=== PATIENT | female | born 1990 | race Two or more races ===

== ENCOUNTER 2025-01-16 19:52 | Emergency (ER) | payer MEDICAID, OTHER ==
[~2025-01-16] VITALS: Ht 157.5 cm; Wt 72.7 kg
--- NOTE | 2025-01-16 20:42 | DVH ---
CHEST RADIOGRAPH Indication: cp Technique: Single frontal view of the chest was obtained COMPARISON: None FINDINGS: Lines and Tubes: None Lungs: Increased interstitial prominence. Pleura: No effusion. No pneumothorax. Cardiomediastinal contours: Unremarkable Bones: Unremarkable IMPRESSION: Mild pulmonary vascular congestion viral pneumonia.
--- NOTE | 2025-01-16 21:01 | ED.PDOC ---
History of Present Illness HPI Comments 34 y/o F with history of insulin-dependent diabetes brought in by family complaining of left-sided chest pain intermittently for the past week, worse and constant today. 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 SUPERVISOR Hx Family History Family History: Unknown Social History Smoker: Non-Smoker Alcohol: Denies ETOH Use Drugs: Denies Drug Use Lives In: Home All Other Systems: Reviewed and Negative (Comprehensive systems review obtained and negative except for what is stated in the HPI.) Physical Exam General Appearance: No Apparent Distress HEENT: Other (Pupils and face Symmetric, moist mucous membranes) Neck: Full Range of Motion, Normal Inspection Respiratory: Chest Non-Tender, Lungs Clear, No Accessory Muscle Use, No Respiratory Distress, Normal Breath Sounds Cardiovascular: No Edema, No JVD, Regular Rate/Rhythm Breast Exam: Deferred Gastrointestinal: Non Tender, Soft Genitalia: Deferred Pelvic: Deferred Rectal: Deferred Extremities: Normal inspection, Normal range of motion, Non-tender, No pedal edema Neurologic: Alert (Oriented x4), Normal Affect, Normal Mood, Other (Ambulatory without difficulty. No gross focal deficit.) Cerebellar Function: NOT DONE Reflexes: NOT DONE Skin: Dry, Normal Color, Warm Lymphatic: NOT DONE Was a procedure done? Was a procedure done?: No EKG EKG : Pulse Rate (adult): 83 Comments Sinus rhythm, rate 83, normal intervals, borderline left axis deviation, possible old inferior infarct, anteroseptal T inversion with other nonspecific T changes. Differential Dx Considerations may include: OH, ACS, PE, URI, PNA, viral syndrome, costochondritis, pericarditis, musculoskeletal pain, anxiety, angina , among others X-Ray, Labs, Meds, VS Vital Signs Date Time Temp Pulse Resp B/P (MAP) Pulse Ox O2 Delivery O2 Flow Rate FiO2 01/17/25 00:59 131/96 01/17/25 00:25 119/85 01/17/25 00:25 87 17 97 Room Air* 0 21 01/17/25 00:22 98.1 80 19 115/69 (84) 100 98.1 01/16/25 21:00 83 01/16/25 20:01 83 01/16/25 19:58 98.2 83 16 126/75 (92) 97 Lab Test 01/17/25 01:29 01/17/25 01:08 01/16/25 21:46 01/16/25 20:07 Range/Units POC Glucose 333 H 70-106 mg/dl Lactic Acid Level 0.8 0.4-2.0 mmol/L Troponin I High Sensitivity < 3 L < 3 L </=34 ng/L White Blood Count 9.8 4.4-10.8 10^3/uL Red Blood Count 4.91 4.0-5.20 10^6/uL Hemoglobin 14.7 12.2-16.2 g/dL Hematocrit 42.6 36.0-46.0 % Mean Corpuscular Volume 86.8 80.0-100.0 fL Mean Corpuscular Hemoglobin 30.0 28.0-32.0 pg Mean Corpuscular Hemoglobin Concent 34.6 32.0-36.0 g/dL Red Cell Distribution Width 13.0 11.8-14.3 % Platelet Count 335 140-450 10^3/uL Mean Platelet Volume 8.9 6.9-10.8 fL Neutrophils (%) (Auto) 63.5 37.0-80.0 % Lymphocytes (%) (Auto) 29.8 10.0-50.0 % Monocytes (%) (Auto) 5.4 0.0-12.0 % Eosinophils (%) (Auto) 1.0 0.0-7.0 % Basophils (%) (Auto) 0.3 0.0-2.0 % Neutrophils # (Auto) 6.2 1.6-8.6 10 ^3/uL Lymphocytes # (Auto) 2.9 0.4-5.4 10 ^3/uL Monocytes # (Auto) 0.5 0-1.3 10 ^3/uL Eosinophils # (Auto) 0.1 0-0.8 10 ^3/uL Basophils # (Auto) 0 0-0.2 10 ^3/uL Nucleated Red Blood Cells 0.2 % Sodium Level 132 L 136-145 mmol/L Potassium Level 3.9 3.5-5.1 mmol/L Chloride Level 99 98-107 mmol/L Carbon Dioxide Level 23 20-31 mmol/L Anion Gap 10 5-15 Blood Urea Nitrogen 13 9-23 mg/dL Creatinine 0.93 0.550-1.02 mg/dL Glomerular Filtration Rate Calc 83 >90 mL/min BUN/Creatinine Ratio 14.0 10.0-20.0 Serum Glucose 407 *H 74-106 mg/dL Calcium Level 10.1 8.7-10.4 mg/dL B-Type Natriuretic Peptide 6.89 0-100 pg/mL Beta HCG, Quantitative 18.9 H 1.5-4.2 mIU/mL Current Medications Medications (Trade) Dose Ordered Sig/Layo Route Start Time Stop Time Status Last Admin Aspirin 162 mg ONCE ONCE PO 01/16/25 20:30 01/16/25 20:31 DC 01/17/25 00:24 Nitroglycerin (Ntrostat Sublingual) 0.4 mg ONCE ONCE SL 01/16/25 20:30 01/16/25 20:31 DC 01/17/25 00:25 Sodium Chloride 1,000 ml @ 1,000 mls/hr Q1H ONCE IV 01/17/25 01:00 01/17/25 01:59 DC 01/17/25 01:34 Ceftriaxone Sodium 50 ml @ 100 mls/hr ONCE ONCE IV 01/17/25 01:00 01/17/25 01:29 DC 01/17/25 01:00 Azithromycin 250 ml @ 125 mls/hr ONCE ONCE IV 01/17/25 01:00 01/17/25 02:59 DC 01/17/25 01:39 Insulin Human Regular (InsuLIN R) 4 units ONCE ONCE IV 01/17/25 01:00 01/17/25 01:01 DC 01/17/25 01:34 [place] [id number] Ph: [phone] DIAGNOSTIC IMAGING Diagnostic Imaging Report : [id number] Signed PATIENT: ADITI MAE ACCT: [id number] UNIT: [id number] : 1990 LOC: ER ROOM / BED: / AGE / SEX: 34 / F ADM STATUS: REG ER SERVICE 18 ORDERING PHYSICIAN: JOSE BERRY MD PROCEDURE(s): CXRP - CHEST PORTABLE REASON: cp ORDER NUMBER(s): [id number], ACCESSION NUMBER(s): [id number] CHEST RADIOGRAPH Indication: cp Technique: Single frontal view of the chest was obtained COMPARISON: None FINDINGS: Lines and Tubes: None Lungs: Increased interstitial prominence. Pleura: No effusion. No pneumothorax. Cardiomediastinal contours: Unremarkable Bones: Unremarkable IMPRESSION: Mild pulmonary vascular congestion viral pneumonia. ATED BY: SKINNY ESPARZA MD DICTATED DATE/TIME: 01/16/252037 SIGNED BY: SKINNY ESPARZA MD SIGNED DATE/TIME: 01/16/252037 CC: X-Ray, Labs, Meds, VS Comment 34-year-old female with a history of diabetes complaining of chest pain Vitals unremarkable Exam unremarkable Rhythm strip independently interpreted by me: Sinus rhythm, rate 83, no ectopy. Chest x-ray IMPRESSION: Mild pulmonary vascular congestion viral pneumonia. CBC unremarkable, metabolic panel remarkable for sodium 132 and glucose 407, hCG slightly elevated at 18.9, BNP and 2 serial troponins negative Patient treated with the following in the ED: Aspirin 325 mg p.o., nitro glycerin 0.4 mg sublingual, 1 L 0.9 normal saline IV bolus, regular insulin 4 units IV, Rocephin 1 g IV, Zithromax 500 mg IV On re-evaluation, patient states pain has improved. Vitals are stable. Plan is to admit the patient for ongoing serial troponins, Cardiology evaluation, glucose control and coverage of possible pneumonia. Time of 1ST Reevaluation: 20:25 Reevaluation 1ST: Unchanged Patient Education/Counseling: Diagnosis, Treatment Family Education/Counseling: No Family Present Additional Information - The following tests were ordered, and results were reviewed by me: EKG, beta- quant, UA, BMP, BNP, CBC, troponin, CXR - I reviewed and agreed with the following test results read by other provider: CXR - I discussed treatments and results with medical personnel Departure 1 Departure Time of Disposition: 00:58 Impression: Primary Impression: Chest pain with high risk for cardiac etiology Additional Impressions: Pneumonia Qualified Codes: J18.9 - Pneumonia, unspecified organism Hyperglycemia Disposition: ADMITTED INPATIENT Condition: Guarded Critical Care Note Critical Care Time?: No Stability Stability form required: No Heart Score Heart Score: Heart Score Response (Comments) Value History Highly Suspicious [address]-Deviation 2 Age <45 0 Risk Factors 1 or 2 risk factors 1 Troponin Normal limit 0 Total 5 I personally scribed for JSOE BERRY MD ([email or web address]) on 01/16/25 at 21:00. Electronically submitted by Henok Henry ([email or web address]). JOSE BERRY MD Jan 16, 2025 21:00
[2025-01-16 21:43] LABS: Basophils # (auto) 0 10 ^3/uL (0-0.2); Basophils % (auto) 0.3 % (0.0-2.0); Eosinophils # (auto) 0.1 10 ^3/uL (0-0.8); Hematocrit 42.6 % (36.0-46.0); Hemoglobin 14.7 g/dL (12.2-16.2); Lymphocytes # (auto) 2.9 10 ^3/uL (0.4-5.4); Lymphocytes % (auto) 29.8 % (10.0-50.0); Mean Corpuscular Hgb Conc. 34.6 g/dL (32.0-36.0); Mean Corpuscular Volume 86.8 fL (80.0-100.0); Monocytes # (auto) 0.5 10 ^3/uL (0-1.3); Monocytes % (auto) 5.4 % (0.0-12.0); Neutrophils # (auto) 6.2 10 ^3/uL (1.6-8.6); Neutrophils % (auto) 63.5 % (37.0-80.0); Nucleated Red Blood Cells % 0.2 %; Platelet Count (auto) 335 10^3/uL (140-450); Red Blood Cells 4.91 10^6/uL (4.0-5.20); White Blood Cell 9.8 10^3/uL (4.4-10.8)
[2025-01-16 22:02] LABS: Chloride 99 mmol/L (98-107); Potassium 3.9 mmol/L (3.5-5.1)
[2025-01-16 22:03] LABS: Anion Gap 10 (5-15); Calcium 10.1 mg/dL (8.7-10.4); Carbon Dioxide 23 mmol/L (20-31)
[2025-01-16 22:08] LABS: Blood Urea Nitrogen 13 mg/dL (9-23)
[2025-01-16 22:10] LABS: Sodium 132 mmol/L (136-145)
[2025-01-16 22:12] LABS: Glucose 407 mg/dL (74-106)
[2025-01-17 00:22] VITALS: BP 115/69; TEMP 98.1
[2025-01-17] MEDS: ASPirin 81 mg TAB PO ONE (00:24)
[2025-01-17 00:25] VITALS: PULSE 87; RESP 17; O2SAT 97
[2025-01-17] MEDS: NITROGLYCERIN 0.4 MG SL TAB SL ONE (00:25)
[2025-01-17] MEDS: cefTRIAXone 1GM/50ML D5W 50 ML IV ONE (01:00)
[2025-01-17] MEDS: SODIUM CHLORIDE 0.9% 1,000 ML IV ONE (01:34)
[2025-01-17] MEDS: InsuLIN REG 1unit/0.01ml Soln (100units/ml) IV ONE (01:34)
[2025-01-17] MEDS: AZITHROMYCIN 500MG/ 250ML 250 ML IV ONE (01:39)
--- NOTE | 2025-01-17 06:32 | ECG ---
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
== END 2025-01-17 03:47 | disposition left against medical advice (07) ==
LOC: ER 19:52
DX: R07.89 Other chest pain (principal); J18.9 Pneumonia, unspecified organism; E11.65 Type 2 diabetes mellitus with hyperglycemia; Z79.4 Long term (current) use of insulin
CPT/HCPCS: 36415; 71045; 80048; 82962; 83605; 83880; 84484; 84702; 85025; 87040; 93005; 96365; 96366; 96367; 96375; 99285; J0456; J0696; J1815